=== PATIENT | male | born 1980 | race Two or more races ===

== ENCOUNTER → 2018-05-26 | Emergency (ER) | payer OTHER ==
[~2018-05-26] VITALS: Ht 175.3 cm; Wt 81.6 kg
[~2018-05-26] MED LIST: CIPRO500 MG PO; MOTRIN800 MG PO; ULTRACET PO
== END | disposition left against medical advice (07) ==
LOC: ER 17:43
DX: Z53.21 Procedure and treatment not carried out due to patient leaving prior to being seen by health care provider (principal)

== ENCOUNTER 2018-06-02 08:51 | Day surgery (SDC) | payer OTHER ==
[~2018-06-02 08:51] MED LIST changes: -CIPRO500 MG PO; -ULTRACET PO
[2018-06-02] MEDS ORDERED: CIPRO500 MG PO (09:43)
[2018-06-02] MEDS ORDERED: ULTRACET PO (09:45)
== END 2018-06-02 12:38 | disposition home or self-care (01) ==
LOC: CIR.AMB 08:51
DX: K80.10 Calculus of gallbladder with chronic cholecystitis without obstruction (principal); K66.0 Peritoneal adhesions (postprocedural) (postinfection)

== ENCOUNTER 2025-03-12 07:00 | Day surgery (SDC) | payer OTHER ==
[~2025-03-12 07:00] MED LIST changes: +CIPRO500 MG PO; +ULTRACET PO
[2025-03-12] MEDS ORDERED: DIPHENHYDRAMINE HCL 50 MG/ML VIAL 1ML IV ONE (09:00)
[2025-03-12] MEDS ORDERED: ONDANSETRON HCL 2 MG/ML VIAL IV ONE (09:00)
[2025-03-12] MEDS ORDERED: fentaNYL CITRATE 50 MCG/ML AMPUL IV PUSH ONE (09:00)
[2025-03-12] MEDS ORDERED: MIDAZOLAM HCL 2 MG/2 ML VIAL IV ONE (09:00)
== END 2025-03-12 10:00 | disposition home or self-care (01) ==
LOC: AMB-ENDOS 07:00
PROVIDERS: ATTEND Colon & Rectal Surgery
DX: D12.0 Benign neoplasm of cecum (principal); D12.4 Benign neoplasm of descending colon; K62.5 Hemorrhage of anus and rectum; K63.5 Polyp of colon; K62.1 Rectal polyp; K57.30 Diverticulosis of large intestine without perforation or abscess without bleeding; Z91.013 Allergy to seafood; Z88.0 Allergy status to penicillin